=== PATIENT | female | born 1980 | race Caucasian/White ===

== ENCOUNTER 2024-08-17 16:44 | Emergency (ER) | payer BC ==
[~2024-08-17] VITALS: Ht 175.3 cm; Wt 81.6 kg
[2024-08-17] MEDS ORDERED: AMOX-430 PO (17:34)
[2024-08-17] MEDS ORDERED: CIPR500T5 PO (17:34)
[2024-08-17] MEDS ORDERED: TDAP [DIPH/PERTUSSIS/TET] 0.5 ML VIAL IM ONE (17:38)
[2024-08-17] MEDS: TDAP [DIPH/PERTUSSIS/TET] 0.5 ML VIAL IM ONE (17:43)
[2024-08-17 17:57] VITALS: BP 128/84; TEMP 98.2; O2SAT 98
== END 2024-08-17 17:57 | disposition home or self-care (01) ==
LOC: ER 16:44
DX: S91.332A Puncture wound without foreign body, left foot, initial encounter (principal); F31.9 Bipolar disorder, unspecified; G25.81 Restless legs syndrome; I10 Essential (primary) hypertension; Z79.899 Other long term (current) drug therapy; X58.XXXA Exposure to other specified factors, initial encounter; Y93.89 Activity, other specified; Y92.89 Other specified places as the place of occurrence of the external cause; Y99.8 Other external cause status
CPT/HCPCS: 90715